=== PATIENT | female | born 1965 | race Caucasian/White ===

== ENCOUNTER → 2016-11-22 | Outpatient (REF) ==
[~2016-11-22] MED LIST: AMOXICILLIN; LORTAB 5/500 501 TAB PO; PHENERGAN 25 TA25 MG PO
== END ==
LOC: WSOH 11:15
DX: Z02.89 Encounter for other administrative examinations (principal)

== ENCOUNTER → 2017-01-03 | Outpatient (REF) | LOC: WSOH 16:15 | DX: Z02.89 Encounter for other administrative examinations (principal) ==

== ENCOUNTER → 2018-06-08 | Outpatient (CLI) | payer OTHER | LOC: MC.RAD 13:00 | DX: Z12.31 Encounter for screening mammogram for malignant neoplasm of breast (principal) ==